=== PATIENT | male | born 1990 | race Asian ===

== ENCOUNTER 2019-09-06 13:03 | Emergency (ER) | payer SELFPAY ==
[~2019-09-06] VITALS: Ht 180.3 cm; Wt 124.3 kg
[2019-09-06 13:32] VITALS: BP 139/99
--- NOTE | 2019-09-06 13:35 | NUR ---
FLU SWAB COLLECTED
--- NOTE | 2019-09-06 13:37 | NUR ---
PT TO NIM[facility] ZHENG, VS STABLE
--- NOTE | 2019-09-06 14:17 | NUR ---
PT TO BED 7 WITH STEADY GAIT
--- NOTE | 2019-09-06 14:39 | NUR ---
C/O COUGH, FLU LIKE SX X SAT. LUNG OSUDS CLEAR ALL THORUGHOUT. PRODUCTIVE COUGH PRESENT. A & O X4. NO RESP DISTRESS NOTED. 100% RA. STEADY GAIT. RUNNY NOSE PRESENT. PT IS TAKING NYQUIIL AND TYLENOL AT HOME. NO SOB. NKA. NO MPH.
[2019-09-06 14:44] VITALS: BP 139/99
--- NOTE | 2019-09-06 14:44 | NUR ---
Patient discharged with v/s stable. Written and verbal after care instructions given and explained. Patient alert, oriented and verbalized understanding of instructions. Ambulatory with steady gait. All questions addressed prior to discharge. ID band removed. Patient advised to follow up with PMD. Rx of IBUPROFEN, ACETAMINOPHEN, AND PROMETHAZINE given. Patient educated on indication of medication including possible reaction and side effects. Opportunity to ask questions provided and answered.
== END 2019-09-06 14:44 | disposition home or self-care (01) ==
LOC: MED 13:03
DX: J06.9 Acute upper respiratory infection, unspecified (principal); F17.210 Nicotine dependence, cigarettes, uncomplicated
CPT/HCPCS: 87804; 99283